=== PATIENT | female | born 2000 | race Caucasian/White ===

== ENCOUNTER 2021-03-05 10:38 | Emergency (ER) | payer MEDICAID ==
[~2021-03-05] VITALS: Ht 167.6 cm; Wt 90.0 kg
--- NOTE | 2021-03-05 10:50 | NUR ---
Bib by friend for tx for suspected overdose. was a code 250/code blue via main ER entrance. With response patioent roused to voice/sternal rub. and has been stable since that time. Patient admits "to snorting about 1/2 a tablet of a 30mg oxy at roughly 9:56am she bought on the street. I think it had some fentanyl in it because it hit me way hard." On arrival alert/vss/good color No si/hi. took illicits in attempt to self medicate
--- NOTE | 2021-03-05 11:36 | NUR ---
With reassessment: patient alert/calm/interactive. Eating drinking/vss. Erp at bedside to eval
[2021-03-05 11:37] VITALS: BP 130/80
[2021-03-05 11:56] LABS: BASOPHILS % (AUTO) 0 % (0-1); EOSINOPHILS % (AUTO) 0 % (1-7); LYMPHOCYTES % (AUTO) 11 % (22-44); MEAN CORPUSCULAR HEMOGLOBIN 30.2 pg (27.0-34.8); MEAN CORPUSCULAR HGB CONC 34.2 g/dL (32.4-35.8); MEAN PLATELET VOLUME 9.1 fL (7.4-10.4); MONOCYTES % (AUTO) 6 % (2-9); NEUTROPHILS % (AUTO) 84 % (42-75); PLATELET COUNT 252 x10^3/uL (130-400); RED CELL DISTRIBUTION WIDTH 12.6 % (9.6-15.2)
[2021-03-05 12:15] LABS: ALBUMIN 3.5 g/dL (3.4-5.0); ANION GAP 4 mmol/L (5-15); CALCIUM 8.3 mg/dL (8.5-10.1); CHLORIDE 110 mmol/L (98-107); SALICYLATE LEVEL < 1.7 mg/dL (2.8-20.0)
[2021-03-05 12:20] LABS: ALANINE AMINOTRANSFERASE 23 U/L (12-78); ALKALINE PHOSPHATASE 92 U/L (45-117); BILIRUBIN,TOTAL 0.6 mg/dL (0.2-1.0); CREATINE KINASE, TOTAL 154 U/L (26-192); CREATININE 0.95 mg/dL (0.55-1.02)
--- NOTE | 2021-03-05 12:24 | NUR ---
c.c ua sent for uds patient/family updated on estimated poc
[2021-03-05] MEDS ORDERED: DIPHENHYDRAMINE 25 MG CAPSULE PO ONE (13:00)
[2021-03-05 13:09] LABS: AMPHETAMINE SCREEN, URINE Negative (Negative); BARBITURATE SCREEN, URINE Negative (Negative); BENZODIAZEPINE SCREEN, URINE Negative (Negative); CANNABINOID SCREEN, URINE Negative (Negative); COCAINE SCREEN, URINE Negative (Negative); METHADONE SCREEN, URINE Negative (Negative); OPIATE SCREEN, URINE Negative (Negative)
[2021-03-05] MEDS ORDERED: DIPHENHYDRAMINE 25 MG CAPSULE ONE (13:41)
[2021-03-05] MEDS ORDERED: ONDANSETRON ODT 4 MG ONE (13:46)
[2021-03-05] MEDS ORDERED: POTASSIUM CHLORIDE 20 MEQ TAB.ER.PRT ONE (13:46)
[2021-03-05] MEDS ORDERED: ONDANSETRON ODT 4 MG PO ONE (14:00)
[2021-03-05] MEDS ORDERED: POTASSIUM CHLORIDE 20 MEQ TAB.ER.PRT PO ONE (14:00)
== END 2021-03-05 14:18 | disposition home or self-care (01) ==
LOC: ED 12:20
DX: T40.411A Poisoning by fentanyl or fentanyl analogs, accidental (unintentional), initial encounter (principal); T40.2X1A Poisoning by other opioids, accidental (unintentional), initial encounter; E87.6 Hypokalemia; R06.89 Other abnormalities of breathing; Y92.89 Other specified places as the place of occurrence of the external cause
CPT/HCPCS: 36415; 71045; 80053; 80299; 80307; 80320; 80329; 82550; 83605; 85025; 93005; 99285; Q0162; Q0163; G0480